=== PATIENT | female | born 1965 | race Caucasian/White ===

== ENCOUNTER 2016-10-12 15:20 | Observation (INO) | payer BC, OTHER ==
--- NOTE | 2016-10-12 15:22 | ED ---
General Adult HPI - General Stated complaint: rt ankle pain Time Seen by Provider: 10/12/16 15:21 Source: RN notes reviewed, old records reviewed - History of Present Illness Initial comments: This is a 51-year-old female in the ER for evaluation. Patient presents today for evaluation of ankle pain and right ankle pain, severe right ankle pain with inability to bear weight on right ankle. Patient had a slip and fall with an inversion injury of right ankle. Denies any other somatic injury. Did take Tylenol, and refusing any other pain medication. - Related Data Home Medications Medication Instructions Recorded Confirmed FLUoxetine HCL [PROzac] 40 mg PO DAILY 11/18/13 10/12/16 Lisinopril [Zestril] 20 mg PO DAILY 11/18/13 10/12/16 Atorvastatin [Lipitor] 20 mg PO HS 10/12/16 10/12/16 Previous Rx's Medication Instructions Recorded Aspirin EC [Ecotrin] 325 mg PO DAILY #30 tablet. 11/21/13 Metoprolol Tartrate [Lopressor] 50 mg PO BID #60 tab 11/21/13 amLODIPine [Norvasc] 5 mg PO DAILY #30 tab 11/21/13 Allergies Allergy/AdvReac Type Severity Reaction Status Date / Time hydromorphone [From Dilaudid] AdvReac Nausea & Verified 10/12/16 15:44 Vomiting morphine AdvReac Nausea & Verified 10/12/16 15:44 Vomiting Review of Systems ROS Statement: Those systems with pertinent positive or pertinent negative responses have been documented in the HPI. ROS Other: All systems not noted in ROS Statement are negative. Past Medical History Past Medical History: Chest Pain / Angina, Hyperlipidemia, Hypertension, Myocardial Infarction ([place]) Last Myocardial Infarction Date:: 2013 History of Any Multi-Drug Resistant Organisms: None Reported Past Surgical History: Back Surgery, Hysterectomy, Orthopedic Surgery Additional Past Surgical History / Comment(s): lt hip METAL SCREWS, DISCECTOMY OF c5c6 Past Anesthesia/Blood Transfusion Reactions: Postoperative Nausea & Vomiting ( PONV) Smoking Status: Never smoker - Past Family History Mother Family Medical History: Coronary Artery Disease (CAD) Father Family Medical History: Coronary Artery Disease (CAD) General Exam General appearance: alert, in no apparent distress Head exam: Present: atraumatic, normocephalic, normal inspection Eye exam: Present: normal appearance, PERRL, EOMI. Absent: scleral icterus, conjunctival injection, periorbital swelling ENT exam: Present: normal exam, mucous membranes moist Neck exam: Present: normal inspection. Absent: tenderness, meningismus, lymphadenopathy Respiratory exam: Present: normal lung sounds bilaterally. Absent: respiratory distress, wheezes, rales, rhonchi, stridor Cardiovascular Exam: Present: regular rate, normal rhythm, normal heart sounds. Absent: systolic murmur, diastolic murmur, rubs, gallop, clicks GI/Abdominal exam: Present: soft, normal bowel sounds. Absent: distended, tenderness, guarding, rebound, rigid Extremities exam: Present: normal inspection, full ROM, normal capillary refill. Absent: tenderness, pedal edema, joint swelling, calf tenderness Back exam: Present: normal inspection Neurological exam: Present: alert, oriented X3, CN II-XII intact Psychiatric exam: Present: normal affect, normal mood Skin exam: Present: warm, dry, intact, normal color. Absent: rash Course Vital Signs 10/12/16 15:25 Temperature 97.5 F L Pulse Rate 67 Respiratory 16 Rate Blood Pressure 153/73 O2 Sat by Pulse 98 Oximetry - Reevaluation(s) Reevaluation #1: 10/12/16 17:08 Patient has pain control at this time, spoke with Dr. lissa Ware, will splint reduced in ER and follow-up in the office tomorrow Procedures - Orthopedic Fracture Reduction Fracture #1 Consent Obtained: verbal consent Time Out Performed: Yes Side: right Fracture Reduction Location: tibia, fibula Analgesia: procedural sedation Technique: direct manipulation, traction/counter-traction Post Reduction X-rays Demonstrate: anatomical reduction Post-Reduction Neuro Exam: intact Post-Reduction Vascular Exam: intact Splint Applied: Yes Patient Tolerated Procedure: well - Orthopedic Joint Reduction Joint #1 Consent Obtained: verbal consent Time Out Performed: Yes Side: right Joint Reduction Location: ankle Analgesia: procedural sedation Shoulder Technique Used (if applicable): traction/counter-traction Technique Used: traction/counter-traction Post-Reduction Neuro Exam: intact Post-Reduction Vascular Exam: intact Post Reduction X-Ray Obtained: Yes Post Reduction X-Ray Results: reduced Splint Applied: Yes Patient Tolerated Procedure: well Medical Decision Making - Medical Decision Making 51 female here status post fall, patient fall after stepping in a hole, patient did sustain trimalleolar fracture of right leg, patient is having splinting of right leg. Patient will be discharged home - Radiology Data Radiology results: report reviewed (X-ray right ankle shows positive trimalar fracture), image reviewed Disposition Clinical Impression: Trimalleolar fracture of right ankle, Fall Disposition: HOME SELF-CARE Condition: Good Instructions: Ankle Fracture (ED) Referrals: Venkatesh Ware MD [Medical Doctor] - 1-2 days
--- NOTE | 2016-10-12 15:50 | XR ---
Right ankle HISTORY: Trauma and pain 3 views of the right ankle No comparisons Fracture dislocation is present at the ankle, there is lateral dislocation at the tibiotalar joint, f racture of the distal metaphyseal fibula with lateral displacement and angulation as well as fracture involving the medial malleolus. Findings thought to represent trimalleolar comminuted fractures. The re is associated soft tissue swelling present. IMPRESSION: Trimalleolar fracture dislocation is suspected with comminuted fragments.
[2016-10-12] MEDS ORDERED: MORPHINE SULFATE 4 MG/ML SYRINGE IVP STA (17:06)
[2016-10-12] MEDS ORDERED: LORazepam 2 MG/ML SYRINGE IV STA (17:06)
[2016-10-12] MEDS: ONDANSETRON 4 MG/2 ML VIAL IVP STA ×2 (17:18→17:58)
[2016-10-12] MEDS ORDERED: KETOROLAC 30 MG/ML 1 ML VIAL IVP STA (17:53)
[2016-10-12] MEDS ORDERED: HYDROmorphone 1 MG/ML 1 ML SYRINGE IVP STA (17:53)
--- NOTE | 2016-10-12 18:16 | XR ---
EXAMINATION TYPE: XR ankle limited RT DATE OF EXAM: 10/12/2016 COMPARISON: Today HISTORY: Post reduction TECHNIQUE: 2 views FINDINGS: 2 views were obtained through the cast. There is evidence of a trimalleolar fracture of the right ankle. There is 2 cm lateral displacement of the talus. There is a approximate 2 cm lateral di splacement of the medial malleolus. IMPRESSION: Trimalleolar fracture of the ankle with a partial lateral dislocation. There is not a sig nificant improvement compared to the initial exam.
[2016-10-12] MEDS ORDERED: SODIUM CHLORIDE 0.9% 1,000 ML IV ONE (19:10)
[2016-10-12] MEDS ORDERED: SODIUM CHLORIDE 0.9% 1,000 ML IV STA (19:10)
[2016-10-12] MEDS ORDERED: SODIUM CHLORIDE 0.9% 500 ML IV STA (19:10)
--- NOTE | 2016-10-12 19:15 | ED ---
Medical Decision Making - Lab Data Result diagrams: 10/12/16 19:20 10/12/16 19:20 - EKG Data -: EKG Interpreted by Me 10/12/16 19:52 EKG shows normal sinus rhythm rate of 64, AK 150, QRS 102, QTC 484 10/12/16 19:53 Disposition Clinical Impression: Trimalleolar fracture of right ankle, Fall Disposition: ADMITTED IP TO THIS [facility] Condition: Good
[2016-10-12 19:27] LABS: Basophils % (A) 0 %; CH 29.9; Eosinophils # (A) 0.1 k/uL (0-0.7); Eosinophils % (A) 1 %; HCT 38.9 % (34.0-46.0); HDW 2.45; HGB 12.6 gm/dL (11.4-16.0); Luc # (Auto) 0.14; Luc % (Auto) 2; Lymphocytes # (A) 1.6 k/uL (1.0-4.8); Lymphocytes % (A) 18 %; MCH 29.5 pg (25.0-35.0); MCHC 32.4 g/dL (31.0-37.0); MCV 91.1 fL (80.0-100.0); Monocytes # (A) 0.4 k/uL (0-1.0); Monocytes % (A) 5 %; Neutrophils # (A) 6.8 k/uL (1.3-7.7); Neutrophils % (A) 74 %; RBC 4.27 m/uL (3.80-5.40); WBC 9.1 k/uL (3.8-10.6); WBC (Perox) 9.35
[2016-10-12] MEDS ORDERED: MIDAZOLAM (PF) 1 MG/ML 5 ML VIAL IV STA (19:33)
[2016-10-12 19:39] LABS: ALT 27 U/L (9-52); AST 25 U/L (14-36); Alkaline Phosphatase 61 U/L (38-126); Anion Gap 11 mmol/L; Blood Urea Nitrogen 17 mg/dL (7-17); Calcium 8.6 mg/dL (8.4-10.2); Carbon Dioxide 25 mmol/L (22-30); Chloride 105 mmol/L (98-107); Glucose 99 mg/dL (74-99); Magnesium 1.9 mg/dL (1.6-2.3); Non-African American GFR(MDRD) >60 (>60 ml/min/1.73 sqM); Phosphorous 3.8 mg/dL (2.5-4.5); Potassium 3.9 mmol/L (3.5-5.1); Sodium 141 mmol/L (137-145); Total Bilirubin 0.6 mg/dL (0.2-1.3); Total Protein 6.4 g/dL (6.3-8.2)
--- NOTE | 2016-10-12 19:53 | XR ---
EXAMINATION TYPE: XR ankle limited RT DATE OF EXAM: 10/12/2016 COMPARISON: Today HISTORY: Post reduction TECHNIQUE: 3 views FINDINGS: There is fairly good anatomic reduction of the trimalleolar fracture of the ankle. There is 5 mm lateral displacement of the medial and lateral malleolus. IMPRESSION: Satisfactory reduction. I see no compacting process. There is still 5 mm lateral displace ment of the talus.
[2016-10-12 19:56] LABS: INR 1.1 (<1.1); Partial Thromboplastin Time 20.8 sec (22.0-30.0); Prothrombin Time 10.6 sec (9.0-12.0)
[2016-10-12 20:17] LABS: Creatine Kinase MB 0.9 ng/mL (0.0-2.4); Troponin I 0.027 ng/mL (0.000-0.034)
[2016-10-12] MEDS: METOPROLOL TARTRATE 50 MG TAB PO SCH (22:18)
[2016-10-12] MEDS: ATORVASTATIN 20 MG TAB PO SCH (22:19)
[2016-10-13] MEDS: MORPHINE SULFATE 4 MG/ML SYRINGE IV PRN ×4 (00:41→18:23)
--- NOTE | 2016-10-13 08:45 | ED ---
DATE OF SERVICE: I was called by the Emergency Room Department physician ( ) in regards to ( ) Ms. Nixon ( ) trimalleolar fracture dislocation. The initial attempt in the Emergency Room Department without significant success and ( ) significant lateral displacement. I arrived in the Emergency Room Department and evaluated the patient and discussed the findings with the patient, her daughter and and they are aware of the need for repositioning this ankle and we will utilize conscious sedation as well as digital ( ) x-ray ( ) position following ( ). The risks and complications were discussed with the family and further reduction was performed. Excellent alignment both AP and lateral were noted and she was placed in a well-padded ( ) posterior ( ) splint and prepared for further admission to [facility]. She will be evaluated by internal medicine prior to surgery and anticipate ( ) tomorrow afternoon following ( ). They are aware of the risks and complications of the ( ) refracturing and displacement terminal gauger degenerative changes as well as blood clots and other ( ) complications ( ). She will be admitted at this time and proceed ( ) as she is scheduled ( ) surgical scheduling at this time for tomorrow afternoon. There was excellent ( ) of the vasculature to ( ) and ( ) reduction is performed.
--- NOTE | 2016-10-13 08:56 | P.HPOR ---
History of Present Illness H&P Date: 10/13/16 Chief Complaint: Right ankle injury This is a 51-year-old female who fell into a mole hole yesterday sustaining injury to her right ankle. On exam and x-ray in the emergency department she is found to have a trimalleolar fracture dislocation of the right ankle. We're consulted for orthopedic evaluation. Past Medical History Past Medical History: Chest Pain / Angina, Hyperlipidemia, Hypertension, Myocardial Infarction ([place]) Last Myocardial Infarction Date:: 2013 History of Any Multi-Drug Resistant Organisms: None Reported Past Surgical History: Back Surgery, Hysterectomy, Orthopedic Surgery Additional Past Surgical History / Comment(s): lt hip METAL SCREWS, DISCECTOMY OF c5c6 Past Anesthesia/Blood Transfusion Reactions: Postoperative Nausea & Vomiting ( PONV) Past Psychological History: Anxiety Additional Psychological History / Comment(s): OCD PER PT Smoking Status: Never smoker - Past Family History Mother Family Medical History: Coronary Artery Disease (CAD) Father Family Medical History: Coronary Artery Disease (CAD) Medications and Allergies Home Medications Medication Instructions Recorded Confirmed Type FLUoxetine HCL [PROzac] 40 mg PO DAILY 11/18/13 10/12/16 History Lisinopril [Zestril] 20 mg PO DAILY 11/18/13 10/12/16 History Atorvastatin [Lipitor] 20 mg PO HS 10/12/16 10/12/16 History Allergies Allergy/AdvReac Type Severity Reaction Status Date / Time hydromorphone [From Dilaudid] AdvReac Nausea & Verified 10/12/16 15:44 Vomiting morphine AdvReac Nausea & Verified 10/12/16 15:44 Vomiting Physical Examination This is a 51-year-old female in no acute distress. She is alert and oriented 3. Exam of the right lower extremity reveals a short leg splint in place. She has full toe motion without difficulty or pain. There is no pain to the knee or hip with motion. Neurovascular status to the lower extremities intact. Results X-rays reveal a trimalleolar fracture dislocation of the right ankle. There are postreduction x-rays which show satisfactory reduction by Dr. Jain. - Labs Labs: Abnormal Lab Results - Last 24 Hours (Table) 10/12/16 Range/Units 19:20 APTT 20.8 L (22.0-30.0) sec H & H 06/21/17 Range/Units 19:20 Hgb 12.6 (11.4-16.0) gm/dL Hct 38.9 (34.0-46.0) % Coagulation 10/12/16 Range/Units 19:20 INR 1.1 (<1.1) Result Diagrams: 10/12/16 19:20 10/12/16 19:20 Assessment and Plan (1) Trimalleolar fracture of right ankle Status: Acute Plan: The clinical and x-ray findings are discussed the patient. She did have closed reduction of the ankle and the emergency department last evening. We are planning open reduction internal fixation of the right ankle today. The procedures been discussed in detail including the possible risks and outcomes of surgery. She'll most likely remain inpatient until tomorrow.
[2016-10-13] MEDS: FLUoxetine HCL 20 MG CAP PO SCH (09:00)
[2016-10-13] MEDS: amLODIPine 5 MG TAB PO SCH (09:00)
[2016-10-13] MEDS: LISINOPRIL 20 MG TAB PO SCH (09:00)
[2016-10-13] MEDS: ENOXAPARIN 40 MG/0.4 ML SYRINGE SQ SCH (09:00)
[2016-10-13] MEDS: METOPROLOL TARTRATE 50 MG TAB PO SCH ×2 (09:00→20:44)
[2016-10-13] MEDS: ONDANSETRON 4 MG/2 ML VIAL IVP PRN ×2 (12:38→18:24)
[2016-10-13] MEDS ORDERED: IV FLUID CONTINUATION 1,000 ML IV ONE (13:02)
[2016-10-13] MEDS ORDERED: fentaNYL (PF) 50 MCG/ML 2 ML AMP ONE (13:10)
[2016-10-13] MEDS ORDERED: PROPOFOL 10 MG/ML 20 ML VIAL IV ONE (13:10)
[2016-10-13] MEDS ORDERED: ePHEDrine 50 MG/ML 1 ML AMP ONE (13:10)
[2016-10-13] MEDS ORDERED: diphenhydrAMINE 50 MG/ML 1 ML VIAL ONE (13:10)
[2016-10-13] MEDS ORDERED: MIDAZOLAM 2 MG/2 ML VIAL ONE (13:10)
[2016-10-13] MEDS ORDERED: SODIUM CHLORIDE 0.9% 100 ML with ceFAZolin 2,000 MG IV ONE ×2 (13:22)
[2016-10-13] MEDS ORDERED: SENNOSIDES-DOCUSATE SODIUM 1 EACH TAB PO PRN (13:45)
[2016-10-13] MEDS ORDERED: diphenhydrAMINE 25 MG CAP PO PRN (13:45)
[2016-10-13] MEDS ORDERED: TEMAZEPAM 15 MG CAP PO PRN (13:45)
[2016-10-13] MEDS ORDERED: PROCHLORPERAZINE SUPPOSITORY 25 MG SUPP RECTAL PRN (13:45)
[2016-10-13] MEDS ORDERED: LACTATED RINGERS 1,000 ML IV ONE (13:46)
[2016-10-13] MEDS ORDERED: HYDROcodone/APAP 7.5-325MG 1 EACH TAB PO PRN (13:49)
--- NOTE | 2016-10-13 14:30 | XR ---
Fluoroscopy INDICATION: Pain FINDINGS: Fluoroscopy time: 6 seconds. Images obtained: 2. IMPRESSIONS: 1. Documentation of fluoroscopy.
--- NOTE | 2016-10-13 14:50 | XR ---
EXAMINATION TYPE: XR ankle limited RT DATE OF EXAM ORDERED: 10/13/2016 HISTORY: post op hardware. COMPARISON: Previous study dated 10/12/2016. FINDINGS: There has been side plate and screw fixation of the distal right fibular fracture. There a re 2 medullary screws transfixing a medial malleolus fracture on the right. There are metallic skin s utures present both medially and laterally. There is and alignment appear anatomic. IMPRESSION: STATUS POST INTERNAL FIXATION OF THE BIMALLEOLAR FRACTURE.
[2016-10-13 15:15] VITALS: RESP 16
[2016-10-13] MEDS: ceFAZolin 2 GM in SODIUM CHLORIDE 0.9% 100 ML IVPB SCH (17:08)
[2016-10-13] MEDS: hydrOXYzine PAMOATE 25 MG CAP PO PRN (20:40)
[2016-10-13] MEDS: ATORVASTATIN 20 MG TAB PO SCH (20:44)
[2016-10-13] MEDS: LACTATED RINGERS 1,000 ML IV SCH ×2 (20:48→22:42)
--- NOTE | 2016-10-13 22:05 | CONS ---
DATE OF CONSULTATION: 10/13/2016 REASON FOR CONSULTATION: Advice regarding hypertension, hyperlipidemia, and other medical issues. Requested by orthopedic surgery. HISTORY: This is a 51-year-old woman with a past medical history of multiple medical problems including hypertension, hyperlipidemia, history chest pain and angina, myocardial infarction, history of back surgery, history of DJD and anxiety, being followed by Dr. Menon in the outpatient setting. She was admitted with a right ankle fracture. The patient has a trimalleolar fracture of the right ankle. There is no history of any fever or rigors. No history of headache or loss of consciousness. No seizures at this time. The patient has occasional cough. PAST MEDICAL HISTORY: History of angina, hypertension, hyperlipidemia, myocardial infarction, history of back surgery, history of anxiety. Medications prior to admission include, home medications are: 1. Norvasc 5 mg p.o. daily. 2. Lopressor 50 mg daily. 3. Zestril 20 mg daily. 4. Prilosec 40 mg daily. 5. Lipitor 20 mg daily. 6. Ecotrin 325 mg daily. ALLERGIES: HYDROMORPHONE, MORPHINE. FAMILY HISTORY: History of coronary artery disease in the family. SOCIAL HISTORY: No history of smoking, no history of alcohol intake. REVIEW OF SYSTEMS: ENT: No decrease in hearing or vision. CARDIOVASCULAR SYSTEM: No angina or palpitations. RESPIRATORY: No cough. GI: As mentioned earlier. : No dysuria. NERVOUS SYSTEM: No numbness or weakness. IMMUNOLOGY: No asthma or hayfever. MUSCULOSKELETAL: As mentioned earlier. ENDOCRINE: No history of diabetes or hypothyroidism. CONSTITUTIONAL: As mentioned. DERMATOLOGY: Negative. PSYCHIATRY: As mentioned earlier. PHYSICAL EXAMINATION: Patient. GENERAL: Alert, oriented x3. VITAL SIGNS: Pulse 67, blood pressure 120/62, respirations 16, pulse ox 98% on room air, the temperature is 98.1. HEENT: Conjunctivae normal. Oral mucosa moist. NECK: No jugular venous distention. No carotid bruit. No lymph node enlargement. CARDIOVASCULAR: S1 and S2 muffled. RESPIRATORY: Breath sounds diminished at the bases. Few scattered rhonchi. No crackles. ABDOMEN: Soft, nontender. EXTREMITIES: Legs no edema. Status post right hemiarthroplasty. NERVOUS SYSTEM: higher functions as mentioned. Moves all limbs equally. No focal motor or sensory deficits. SKIN: No rashes. LABS: CBC within normal limits, 20.8, CMP within normal limits. ASSESSMENT: 1. Trimalleolar fracture of the right ankle. 2. Hypertension. 3. Hyperlipidemia. 4. History of myocardial infarction. 5. History of angina. 6. History of back surgery. 7. History of degenerative joint disease. 8. History of anxiety. 9. History of OCD. 10. History of THC remotely. 11. Obesity body mass index 33.3. 12. FULL CODE. RECOMMENDATIONS AND DISCUSSION: In this 51-year-old woman who presented with multiple complex medical issues, we will monitor the patient closely, continue the current recommendations and treatment. Recommend to resume home medications. The patient is stable, cleared for surgery. DVT prophylaxis and incentive spirometry. We will follow the patient closely. The patient will be asked to follow up with Dr. Menon closely after discharge. Thank you, Dr. Jain, for letting us participate in the care of this patient. ROMERO
[2016-10-14] MEDS: MORPHINE SULFATE 4 MG/ML SYRINGE IV PRN (00:42)
[2016-10-14] MEDS: ONDANSETRON 4 MG/2 ML VIAL IVP PRN (00:42)
[2016-10-14] MEDS: ceFAZolin 2 GM in SODIUM CHLORIDE 0.9% 100 ML IVPB SCH (00:42)
[2016-10-14] MEDS: HYDROcodone/APAP 7.5-325MG 1 EACH TAB PO PRN ×2 (06:26→12:36)
[2016-10-14] MEDS: hydrOXYzine PAMOATE 25 MG CAP PO PRN (06:26)
[2016-10-14 07:38] VITALS: BP 173/81; TEMP 98.1
[2016-10-14] MEDS: FLUoxetine HCL 20 MG CAP PO SCH (07:38)
[2016-10-14] MEDS: ENOXAPARIN 40 MG/0.4 ML SYRINGE SQ SCH (07:38)
[2016-10-14] MEDS: amLODIPine 5 MG TAB PO SCH (07:39)
[2016-10-14] MEDS: LISINOPRIL 20 MG TAB PO SCH (07:39)
[2016-10-14] MEDS: METOPROLOL TARTRATE 50 MG TAB PO SCH (07:39)
[2016-10-14 07:45] LABS: Basophils % (A) 0 %; CHCM 32.7; Eosinophils % (A) 0 %; HCT 35.9 % (34.0-46.0); HDW 2.44; HGB 11.7 gm/dL (11.4-16.0); Luc # (Auto) 0.14; Luc % (Auto) 1; Lymphocytes # (A) 1.3 k/uL (1.0-4.8); Lymphocytes % (A) 9 %; MCH 28.9 pg (25.0-35.0); MCHC 32.5 g/dL (31.0-37.0); MCV 89.1 fL (80.0-100.0); Mean Platelet Volume 9.1; Monocytes # (A) 0.8 k/uL (0-1.0); Monocytes % (A) 6 %; Neutrophils # (A) 12.4 k/uL (1.3-7.7); Neutrophils % (A) 84 %; RBC 4.03 m/uL (3.80-5.40); RDW 13.7 % (11.5-15.5); WBC 14.8 k/uL (3.8-10.6); WBC (Perox) 15.27
--- NOTE | 2016-10-14 08:37 | P.DS ---
Providers Date of admission: 10/12/16 19:11 Expected date of discharge: 10/14/16 Attending physician: Ravindra Jain Consults: 10/12/16 20:43 Consult Physician Routine Consulting Provider: Cynthia Ty Consult Reason/Comments: medical management Do you want consulting provider notified?: Yes, Notify in am Primary care physician: Clayton Menon - Discharge Diagnosis(es) (1) Trimalleolar fracture of right ankle Current Visit: Yes Status: Acute Hospital Course: This is a 51-year-old female who is admitted to [facility] on 06/14/2016 after falling and sustaining injury to her right ankle. On exam and x-ray in the emergency and she is found to have a trimalleolar fracture dislocation. She is admitted to our service for surgical intervention and care. Patient is taken to surgery on 10/13/2016 for open reduction internal fixation of the right ankle. The procedures performed without convocation or sequelae. Patient's doing well postoperatively. Vital signs are stable. She is ready for discharge on postoperative day #1. Patient is discharged to home on 10/14/2016 in good condition. Please see med rec for accurate list of home medications. Patient Condition at Discharge: Good Plan - Discharge Summary New Discharge Prescriptions: New HYDROcodone/APAP 7.5-325MG [Gowen 7.5-325] 1 - 2 each PO Q4-6H PRN #90 tab PRN Reason: Pain Aspirin 325 mg PO BID #60 tab Sennosides-Docusate Sodium [Senokot-S] 1 tab PO BID #60 tablet No Action Lisinopril [Zestril] 20 mg PO DAILY FLUoxetine HCL [PROzac] 40 mg PO DAILY Aspirin EC [Ecotrin] 325 mg PO DAILY #30 tablet. Metoprolol Tartrate [Lopressor] 50 mg PO BID #60 tab amLODIPine [Norvasc] 5 mg PO DAILY #30 tab Atorvastatin [Lipitor] 20 mg PO HS Discharge Medication List FLUoxetine HCL [PROzac] 40 mg PO DAILY 11/18/13 [History] Lisinopril [Zestril] 20 mg PO DAILY 11/18/13 [History] Aspirin EC [Ecotrin] 325 mg PO DAILY #30 tablet. 11/21/13 [Rx] Metoprolol Tartrate [Lopressor] 50 mg PO BID #60 tab 11/21/13 [Rx] amLODIPine [Norvasc] 5 mg PO DAILY #30 tab 11/21/13 [Rx] Atorvastatin [Lipitor] 20 mg PO HS 10/12/16 [History] Aspirin 325 mg PO BID #60 tab 10/14/16 [Rx] HYDROcodone/APAP 7.5-325MG [Gowen 7.5-325] 1 - 2 each PO Q4-6H PRN #90 tab 10/14 [Rx] Sennosides-Docusate Sodium [Senokot-S] 1 tab PO BID #60 tablet 10/14/16 [Rx] Follow up Appointment(s)/Referral(s): Venkatesh Ware MD [Medical Doctor] - 1-2 days Ravindra Jain DO [Doctor of Osteopathic Medicine] - 10 Days Ambulatory/Diagnostic Orders: Walker [DME.AMB1] Location: Determined By Patient Patient Instructions/Handouts: Ankle Fracture (ED) Activity/Diet/Wound Care/Special Instructions: Nonweightbearing right lower extremity with walker. Keep splint intact. Discharge Disposition: HOME SELF-CARE
[2016-10-14 08:58] VITALS: PULSE 76
[2016-10-14 12:08] LABS: Appearance,Urine Clear (Clear); Bilirubin,Urine Negative (Negative); Glucose,Urine (UA) Negative (Negative); Ketones,Urine Negative (Negative); Leukocyte Esterase,Urine Negative (Negative); Nitrite,Urine Negative (Negative); PH, Urine 6.5 (5.0-8.0); Protein,Urine Negative (Negative); Specific Gravity,Urine 1.007 (1.001-1.035); UA Billing (MACRO vs. MICRO) CHEM; Urobilinogen,Urine <2.0 mg/dL (<2.0)
--- NOTE | 2016-10-14 16:41 | PN ---
DATE OF SERVICE: 10/14/2016 This 51-year-old woman who was admitted with trimalleolar fracture right ankle underwent ORIF of the right ankle. No chest pain, no palpitation. No fever. On exam, alert and oriented x3. Pulse is 78, blood pressure 170/81, respirations 16, temperature 98.4, pulse ox 90% on room air. HEENT: Conjunctivae normal. NECK: No jugular venous distention. CARDIOVASCULAR: S1 and S2, muffled. RESPIRATORY: Breath sounds diminished at the bases. No rhonchi, no crackles. ABDOMEN: Soft. LEGS: Status post right ankle surgery. NERVOUS SYSTEM: No focal deficits. LABS: WBC 14.8. UA unremarkable. ASSESSMENT: 1. Trimalleolar fracture of the right ankle status post open reduction and internal fixation. 2. Increased WBC, possibly reactive. 3. Hypertension, essential. 4. Hyperlipidemia. 5. History of myocardial infarction. 6. History of angina. 7. History of back surgery. 8. History of degenerative joint disease. 9. History of anxiety. 10. History of obsessive compulsive disorder. 11. History of Tetrahydrocannabinol remotely. 12. Obesity with a body mass index of 33.3. 13. FULL CODE. RECOMMENDATIONS AND DISCUSSION: I recommend to continue the current medications, continue monitoring and symptomatic treatment. Incentive spirometry. Follow closely with primary physician on a p.r.n. basis. The rest of the recommendations per Orthopedic Surgery. She orders for details.
--- NOTE | 2016-10-14 18:49 | OP ---
DATE OF SERVICE: 10/13/2016 SURGEON: MIRA MORELAND DO TEMPORARY STAFF ACCOUNTANT: PREOPERATIVE DIAGNOSIS: Trimalleolar fracture dislocation, right ankle. POSTOPERATIVE DIAGNOSIS: Trimalleolar fracture dislocation, right ankle. OPERATION: Open reduction internal fixation of displaced trimalleolar dislocation, right ankle. ANESTHESIA: ESTIMATED BLOOD LOSS: SPECIMENS REMOVED: COMPLICATIONS: OPERATIVE FINDINGS: DESCRIPTION OF PROCEDURE: Patient was taken to the operative suite and placed in supine position. Spinal anesthesia was performed by the department of anesthesiology. Betadine prep was carried out over the right ankle. Sterile drapes were applied in the usual manner. Pneumatic tourniquet was inflated to 350 mmHg. A lateral incision was developed over the distal fibula and the tibial fracture. Sharp dissection through the subcutaneous tissue was performed. The ( ) nerve ( ) retracted and the fracture was identified. ( ) evidence of ( ) tibial fracture and the ( ) held in position with a lobster clamp. A 5-hole ( ) plate was shaped ( ) in securing the fracture laterally. Area was irrigated. X-rays were reviewed. ( ) A longitudinal incision was then developed over the medial malleolar fracture. ( ) tissue ( ) removed from the ( ) of the fracture. The fracture was held in position with ( ) clamp. Two ( ) vices were used in securing the ( ) fragment and ( ). Area was irrigated. The ( ) of the medial ( ) was reviewed ( ) Vicryl suture. Skin was approximated with 8 skin clips. Lateral incision was then ( ) suture ( ) area was closed from deep to superficial. ( ) were sutured utilizing ( ). The staple was utilized in approximating the skin. X-rays were obtained from the junction with ( ) alignment and position ( ). ( ) fracture ( ). Betadine, Adaptic and sterile pressure ( ) dressing was applied. Patient was transferred to recovery room in satisfactory postoperative condition. ( ) GROSS PATHOLOGY: There was a displaced fracture dislocation of the right ankle at the medial malleolus with comminution of the lateral fibula fracture. A small ( ) posterior malleolus. ( ) followup.
== END 2016-10-14 14:59 | disposition home or self-care (01) ==
LOC: EC 15:20 → INTOOBSV 19:11 → 3SUR 19:11
PROVIDERS: ADMIT Orthopaedic Surgery; ATTEND Orthopaedic Surgery
DX: S82.851A Displaced trimalleolar fracture of right lower leg, initial encounter for closed fracture (principal); E78.5 Hyperlipidemia, unspecified; I10 Essential (primary) hypertension; I20.9 Angina pectoris, unspecified; I25.2 Old myocardial infarction; Z90.710 Acquired absence of both cervix and uterus; F41.9 Anxiety disorder, unspecified; F42.9 Obsessive-compulsive disorder, unspecified; Z82.49 Family history of ischemic heart disease and other diseases of the circulatory system; Z79.899 Other long term (current) drug therapy; Z88.5 Allergy status to narcotic agent; W17.2XXA Fall into hole, initial encounter; E66.9 Obesity, unspecified; Z68.33 Body mass index [BMI] 33.0-33.9, adult; M19.90 Unspecified osteoarthritis, unspecified site
CPT/HCPCS: 27823; 96361; 96365; 96366 ×2; 96367; 36415; 93005; 97161; 80053; 82550; 82553; 83735; 84100; 84484; 85025 ×2; 85610; 85730; 81003; 73600 ×2; 73610; G0378 ×3; C1713; J2250 ×2; J2060; J2270 ×3; J1200; J0690 ×3; J2405 ×3; J1650; J3010; J1885; J2704

== ENCOUNTER 2017-10-04 09:25 | Day surgery (SDC) | payer OTHER ==
[2017-10-02 10:31] VITALS: BMI 33.3
[~2017-10-04 09:25] MED LIST: LACTATED RINGERS 1,000 ML IV SCH; LIDOCAINE 1% 20 ML VIAL (10MG/ML) FOR IV START INTRADERMA PRN; MIDAZOLAM 2 MG/2 ML VIAL IV PRN
[2017-10-04 10:38] VITALS: TEMP 98.4
[2017-10-04] MEDS ORDERED: PROPOFOL 10 MG/ML 20 ML VIAL IV ONE (11:13)
--- NOTE | 2017-10-04 11:28 | P.PCN ---
Date of Procedure: 10/04/17 Procedure(s) Performed: BRIEF HISTORY: Patient is a 52-year-old pleasant white female, scheduled for an elective colonoscopy as a part of screening for colorectal neoplasia. PROCEDURE PERFORMED: Colonoscopy. PREOPERATIVE DIAGNOSIS: Screening for colon cancer. IV sedation per Anesthesia. PROCEDURE: After informed consent was obtained, the patient, was brought into the endoscopy unit. IV sedation was administered by Anesthesia under continuous monitoring. Digital rectal examination was normal. Initially the Olympus CF- 160 flexible video colonoscope was then inserted in the rectum, gradually advanced into the cecum without any difficulty. Careful examination was performed as the scope was gradually being withdrawn. Ileocecal valve and the appendiceal orifice were visualized and appeared normal. Prep was excellent. Mucosa of the cecum, ascending colon, transverse colon, descending colon, sigmoid colon, and rectum appeared normal. Retroflexion was performed in the rectum and no lesions were seen. The patient tolerated the procedure well. IMPRESSION: Normal-appearing colon from rectum to cecum with no evidence of colorectal neoplasia . RECOMMENDATIONS: Findings of this examination were discussed with the patient well as her family. She was advised to have a repeat screening colonoscopy in 10 years.
[2017-10-04 11:41] VITALS: RESP 18
[2017-10-04 11:45] VITALS: BP 134/71; PULSE 54
== END 2017-10-04 12:01 | disposition home or self-care (01) ==
LOC: ORWHC2ENDO 09:25
PROVIDERS: ATTEND Internal Medicine Gastroenterology
DX: Z12.11 Encounter for screening for malignant neoplasm of colon (principal); I10 Essential (primary) hypertension; F32.9 Major depressive disorder, single episode, unspecified; F41.9 Anxiety disorder, unspecified; E78.5 Hyperlipidemia, unspecified; Z79.899 Other long term (current) drug therapy; Z88.5 Allergy status to narcotic agent
CPT/HCPCS: J2704; G0121; 45378

== ENCOUNTER → 2019-01-03 | Outpatient (CLI) | payer OTHER ==
--- NOTE | 2019-01-03 16:41 | US ---
EXAMINATION TYPE: US venous doppler duplex LE LT DATE OF EXAM: 01/03/2019 4:27 PM COMPARISON: NONE CLINICAL HISTORY: LEFT LEG; left thigh pain M79.652. History of left thigh pain x 4 days; HX of Left femur fracture with fixation as a young person; left knee joint fracture per patient 34 years ago. SIDE PERFORMED: Left TECHNIQUE: The lower extremity deep venous system is examined utilizing real time linear array sonog zhao with graded compression, doppler sonography and color-flow sonography. VESSELS IMAGED: Common Femoral Vein Deep Femoral Vein Greater Saphenous Vein * Femoral Vein Popliteal Vein Small Saphenous Vein * Proximal Calf Veins (* superficial vessels) Left Leg: Negative for DVT IMPRESSION: No evidence of deep venous thrombosis in the left leg.
--- NOTE | 2019-01-03 17:17 | XR ---
EXAMINATION TYPE: XR lumbosacral spine min 4V DATE OF EXAM: 01/03/2019 COMPARISON: NONE HISTORY: Left leg pain TECHNIQUE: 5 views FINDINGS: Vertebra have fairly normal spacing and alignment. Posterior elements are intact. Sacroilia c joints appear normal. There is no evidence of compression fracture. IMPRESSION: Lumbar spine appears normal for age. No fracture.
--- NOTE | 2019-01-03 17:18 | XR ---
EXAMINATION TYPE: XR knee complete LT DATE OF EXAM: 01/03/2019 COMPARISON: NONE HISTORY: Knee pain TECHNIQUE: 3 views FINDINGS: I see no fracture nor dislocation. Joint spaces are normal. There is no sign of joint effus ion. IMPRESSION: Negative left knee exam.
== END | disposition home or self-care (01) ==
LOC: RADUSWWP 16:02
PROVIDERS: ATTEND Family Medicine
DX: M79.652 Pain in left thigh (principal); M25.562 Pain in left knee
CPT/HCPCS: 72110

== ENCOUNTER 2021-06-18 15:10 | Emergency (ER) | payer BC, OTHER ==
[2021-06-18 16:02] VITALS: BP 178/75; RESP 16; TEMP 97.1
[2021-06-18] MEDS ORDERED: ONDANSETRON 4 MG/2 ML VIAL IVP STA (16:05)
[2021-06-18] MEDS ORDERED: SODIUM CHLORIDE 0.9% 1,000 ML IV STA (16:05)
[2021-06-18] MEDS ORDERED: ASPIRIN 81 MG PO STA (16:05)
[2021-06-18] MEDS ORDERED: LORazepam 2 MG/ML INJ IV STA (16:06)
[2021-06-18 16:40] LABS: HCT 43.5 % (34.0-46.0); HGB 14.6 gm/dL (11.4-16.0); MCH 30.7 pg (25.0-35.0); MCHC 33.6 g/dL (31.0-37.0); MCV 91.4 fL (80.0-100.0); Mean Platelet Volume 10.7; Platelet Count 192 k/uL (150-450); RBC 4.76 m/uL (3.80-5.40); RDW 13.2 % (11.5-15.5); WBC 14.8 k/uL (3.8-10.6)
--- NOTE | 2021-06-18 16:40 | ED ---
General Adult HPI - General Chief complaint: Nausea/Vomiting/Diarrhea Stated complaint: Anxiety Time Seen by Provider: 06/18/21 15:21 Source: patient, EMS Mode of arrival: EMS Limitations: no limitations - History of Present Illness Initial comments: Patient is a 56-year-old male with past medical history remarkable for hypertension, anxiety percents emergency department with sounds like an anxiety episode while at work. She has been under more stress lately. She states she was feeling extremely anxious at work. Both hands went numb in both feet went numb. She began having nausea and vomiting and some mild lightheadedness. Symptoms began to improve and she attempted to go back to work but became back. She presents emergency department for further evaluation of this time. She denies any chest pain, shortness breath, abdominal pain. Does endorse nausea with nonbilious emesis. Denies any diarrhea, fevers, chills, sick contacts. Denies any headaches, denies any weakness. States the numbness in her hands and feet of resolved. His no other acute complaints at this time. No history of panic attacks. Is concerned regarding her heart. His no other acute complaints at this time. - Related Data Home Medications Medication Instructions Recorded Confirmed lisinopriL [Zestril] 20 mg PO DAILY 11/18/13 06/18/21 amLODIPine [Norvasc] 5 mg PO DAILY 10/02/17 06/18/21 Atorvastatin Calcium [Lipitor] 10 mg PO HS 06/18/21 06/18/21 FLUoxetine HCL [PROzac] 20 mg PO DAILY 06/18/21 06/18/21 Previous Rx's Medication Instructions Recorded Metoprolol Tartrate [Lopressor] 50 mg PO BID #60 tab 11/21/13 LORazepam [Ativan] 0.5 mg PO DAILY PRN 3 Days #3 tab 06/18/21 Allergies Allergy/AdvReac Type Severity Reaction Status Date / Time hydromorphone [From Dilaudid] AdvReac Nausea & Verified 06/18/21 17:34 Vomiting morphine AdvReac Nausea & Verified 06/18/21 17:34 Vomiting Review of Systems ROS Statement: Those systems with pertinent positive or pertinent negative responses have been documented in the HPI. Review of Systems: CONST: Denies fever EYES: Denies blurry vision ENT: Denies nasal congestion C/V: Denies Chest pain RESP: Denies shortness of breath GI: Denies abdominal pain : Denies dysuria SKIN: Denies rash. MSK: Denies joint pain. NEURO: Denies headache ROS Other: All systems not noted in ROS Statement are negative. Past Medical History Past Medical History: Chest Pain / Angina, Hyperlipidemia, Hypertension, Myocardial Infarction ([place]) Last Myocardial Infarction Date:: 2013 History of Any Multi-Drug Resistant Organisms: None Reported Past Surgical History: Back Surgery, Heart Catheterization, Hysterectomy, Orthopedic Surgery Additional Past Surgical History / Comment(s): RT ANKLE PLATE, lt hip METAL SCREWS, DISCECTOMY OF c5c6 Past Anesthesia/Blood Transfusion Reactions: Postoperative Nausea & Vomiting (PONV) Past Psychological History: Anxiety Smoking Status: Never smoker Past Alcohol Use History: Occasional Past Drug Use History: Marijuana - Past Family History Mother Family Medical History: Coronary Artery Disease (CAD) Father Family Medical History: Coronary Artery Disease (CAD) General Exam - General Exam Comments Initial Comments: General: Appears in no mild distress secondary to anxiety. HEAD: Normal with no signs of head trauma. EYES: PERRLA, EOMI, conjunctiva normal, no discharge. Pupils are 3 mm and equal bilaterally. ENT: Hearing grossly intact, normal oropharynx. RESPIRATORY: Clear breath sounds bilaterally. No wheezes, rales, or rhonchi. C/V: Regular rate and rhythm. S1 and S2 auscultated, no edema, peripheral pulses 2+ and intact throughout ABD: Abd is soft, nontender, nondistended EXT: Normal range of motion, no obvious deformity SKIN: No rashes or lesions observed on exposed skin. NEURO: Alert and oriented 4. Cranial nerves II through XII are intact. No focal sensory or strength deficits. Normal cerebellar function is intact as evident by normal finger-nose and heel andrew testing. NIH is 0. GCS is 15. Limitations: no limitations Course Vital Signs 06/18/21 06/18/21 15:41 17:50 Temperature 97.1 F L Pulse Rate 58 L 63 Respiratory 16 16 Rate Blood Pressure 178/75 O2 Sat by Pulse 99 96 Oximetry Medical Decision Making - Medical Decision Making Based on the patient's presentation and physical exam, I do believe she is likely experiencing a panic attack or anxiety episode. However, no cardiac etiology at this time. We will obtain cardiac laboratory studies as well as EKG and chest x-ray. She'll be sent medically treated with aspirin, Ativan, Zofran, fluid bolus. She was in agreement this plan. Patient's EKG shows no signs of acute ischemia and no acute changes from prior EKGs.Laboratory studies are remarkable for a mild leukocytosis of 14 which is likely reactive. The remainder of the labs are relatively unremarkable including a negative troponin. Chest x-ray revealed no acute cardiopulmonary process. On reevaluation, patient is feeling improved. She is no longer nauseous. She states anxiety is gone. His no other acute complaints at this time. I did discuss with the patient as well as family, patient's daughter is concerned for possible stroke or Shaw's palsy and request a CT brain. We will obtain this at the request. I have low suspicion for any intracranial abnormality at this time. Patient's CT brain revealed no acute injury, hemorrhage or midline shift or mass effect. His no other intracranial findings on CT. Reevaluation come patient remains within normal limits and stable. Vital signs remained within normal limits and stable. I did discuss with her the results of her laboratory studies and imaging overall. CT brain is unremarkable. I do believe it is safer to be discharged home at this time. Patient never had chest pain in the department. She likely experienced an anxiety episode versus panic attack. Patient was in agreement with this. She'll be given 3 tablets of Ativan for home and instructions follow-up with her PCP. She was in agreement this plan. I will provide the patient with a prescription for Ativan. I instructed the patient to follow up with their PCP in the next 3 days. I explained that the patient should return to the emergency department if they experience any worsening symptoms. Strict return precautions were discussed with the patient. The patient expressed understanding of these instructions. I answered all questions that the patient had. The patient was discharged home in good condition with their prescriptions and follow up information. Patient is tolerating oral intake and upon discharge. - Lab Data Result diagrams: 06/18/21 16:26 06/18/21 16:26 Lab Results 06/18/21 06/18/21 06/18/21 Range/Units 16:26 16: 16: WBC 14.8 H (3.8-10.6) k/uL RBC 4.76 (3.80-5.40) m/uL Hgb 14.6 (11.4-16.0) gm/dL Hct 43.5 (34.0-46.0) % MCV 91.4 (80.0-100.0) fL MCH 30.7 (25.0-35.0) pg MCHC 33.6 (31.0-37.0) g/dL RDW 13.2 (11.5-15.5) % Plt Count 192 (150-450) k/uL MPV 10.7 Neutrophils % (Manual) 90 % Lymphocytes % (Manual) 6 % Monocytes % (Manual) 4 % Neutrophils # (Manual) 13.32 H (1.3-7.7) k/uL Lymphocytes # (Manual) 0.89 L (1.0-4.8) k/uL Monocytes # (Manual) 0.59 (0-1.0) k/uL Nucleated RBCs 0 (0-0) /100 WBC Manual Slide Review Performed Large Platelets Present RBC Morphology Normal PT 10.5 (9.0-12.0) sec INR 1.0 (<1.2) APTT 16.2 L (22.0-30.0) sec Sodium 141 (137-145) mmol/L Potassium 3.4 L (3.5-5.1) mmol/L Chloride 109 H (98-107) mmol/L Carbon Dioxide 20 L (22-30) mmol/L Anion Gap 12 mmol/L BUN 18 H (7-17) mg/dL Creatinine 1.27 H (0.52-1.04) mg/dL Est GFR (CKD-EPI)AfAm 54 (>60 ml/min/1.73 sqM) Est GFR (CKD-EPI)NonAf 47 (>60 ml/min/1.73 sqM) Glucose 157 H (74-99) mg/dL Calcium 9.4 (8.4-10.2) mg/dL Magnesium 1.7 (1.6-2.3) mg/dL Total Bilirubin 1.0 (0.2-1.3) mg/dL AST 37 H (14-36) U/L ALT 24 (4-34) U/L Alkaline Phosphatase 47 (38-126) U/L Troponin I (0.000-0.034) ng/mL Total Protein 6.9 (6.3-8.2) g/dL Albumin 4.3 (3.5-5.0) g/dL 06/18/21 Range/Units 16:26 WBC (3.8-10.6) k/uL RBC (3.80-5.40) m/uL Hgb (11.4-16.0) gm/dL Hct (34.0-46.0) % MCV (80.0-100.0) fL MCH (25.0-35.0) pg MCHC (31.0-37.0) g/dL RDW (11.5-15.5) % Plt Count (150-450) k/uL MPV Neutrophils % (Manual) % Lymphocytes % (Manual) % Monocytes % (Manual) % Neutrophils # (Manual) (1.3-7.7) k/uL Lymphocytes # (Manual) (1.0-4.8) k/uL Monocytes # (Manual) (0-1.0) k/uL Nucleated RBCs (0-0) /100 WBC Manual Slide Review Large Platelets RBC Morphology PT (9.0-12.0) sec INR (<1.2) APTT (22.0-30.0) sec Sodium (137-145) mmol/L Potassium (3.5-5.1) mmol/L Chloride (98-107) mmol/L Carbon Dioxide (22-30) mmol/L Anion Gap mmol/L BUN (7-17) mg/dL Creatinine (0.52-1.04) mg/dL Est GFR (CKD-EPI)AfAm (>60 ml/min/1.73 sqM) Est GFR (CKD-EPI)NonAf (>60 ml/min/1.73 sqM) Glucose (74-99) mg/dL Calcium (8.4-10.2) mg/dL Magnesium (1.6-2.3) mg/dL Total Bilirubin (0.2-1.3) mg/dL AST (14-36) U/L ALT (4-34) U/L Alkaline Phosphatase (38-126) U/L Troponin I <0.012 (0.000-0.034) ng/mL Total Protein (6.3-8.2) g/dL Albumin (3.5-5.0) g/dL - EKG Data -: EKG Interpreted by Me EKG Comments: 12-lead Electrocardiogram Interpretation Note EKG was reviewed and interpreted by myself. 12-lead ECG performed at 1537 is interpreted by me as revealing normal sinus rhythm at a rate of 58 beats per minute. [place] is normal. OR interval is 156 seconds, QRS duration is 105 ms, QTc is 490 ms and slightly prolonged. Does show signs of left ventricular hypertrophy... There were no ST or T wave abnormalities to suggest myocardial ischemia or injury. R wave progression across the precordium was satisfactory. By my interpretation this EKG is non-diagnostic for acute ischemia. No change in EKG when compared to prior EKGs. Disposition Clinical Impression: Anxiety, Nausea and vomiting Disposition: HOME SELF-CARE Condition: Good Instructions (If sedation given, give patient instructions): Acute Nausea and Vomiting (ED), Anxiety (ED), Panic Attack (ED) Prescriptions: LORazepam [Ativan] 0.5 mg PO DAILY PRN 3 Days #3 tab PRN Reason: Anxiety Is patient prescribed a controlled substance at d/c from ED?: Yes When asked, does pt state using other controlled substances?: No If prescribed controlled substance>3 days was MAPS reviewed?: Prescribed <3 Days Referrals: Clayton Menon DO [Primary Care Provider] - 1-2 days
[2021-06-18 16:52] LABS: Albumin 4.3 g/dL (3.5-5.0); Calcium 9.4 mg/dL (8.4-10.2); Magnesium 1.7 mg/dL (1.6-2.3); Total Protein 6.9 g/dL (6.3-8.2)
[2021-06-18 16:53] LABS: Potassium 3.4 mmol/L (3.5-5.1)
[2021-06-18 17:18] LABS: Prothrombin Time 10.5 sec (9.0-12.0)
[2021-06-18 17:24] LABS: Partial Thromboplastin Time 16.2 sec (22.0-30.0)
[2021-06-18 17:47] LABS: Large Platelets Present; Lymphocytes # (M) 0.89 k/uL (1.0-4.8); Monocytes # (M) 0.59 k/uL (0-1.0); Neutrophils # (M) 13.32 k/uL (1.3-7.7); Neutrophils % (M) 90 %; Nucleated Red Blood Cells 0 /100 WBC (0-0); RBC Morphology Normal; Total Cells Counted 100
[2021-06-18 17:51] VITALS: PULSE 63
--- NOTE | 2021-06-18 18:02 | XR ---
EXAMINATION TYPE: XR chest 2V DATE OF EXAM: 06/18/2021 COMPARISON: 11/18/2013 HISTORY: 56 years Female. STUDY INDICATION GIVEN: Chest Pain . TECHNIQUE: Frontal and lateral chest radiographs. IMPRESSION: No focal airspace disease, pneumothorax or pleural effusion. The cardiomediastinal silhouette is normal in appearance. No acute osseous abnormalities seen.
--- NOTE | 2021-06-18 18:31 | CT ---
EXAMINATION TYPE: CT brain wo con DATE OF EXAM: 06/18/2021 COMPARISON: 06/23/2011 HISTORY: Neuro deficits TECHNIQUE: CT scan of the head without contrast CT DLP: 1090.4 mGycm Automated exposure control for dose reduction was used. FINDINGS: No acute intracranial hemorrhage, midline shift or mass effect. Woods-white matter differentiation is preserved. CSF spaces and ventricles are normal in configuration. No acute intraorbital osseous or soft tissue abnormalities seen. Mild mucosal thickening in the right ethmoidal air cells. Noted again is partial opacification of the left mastoid air cells, no significant change since prior Atherosclerotic calcifications are seen in the intracranial internal carotid arteries. IMPRESSION: NO ACUTE INTRACRANIAL HEMORRHAGE MIDLINE SHIFT OR MASS EFFECT. MILD MUCOSAL SINUS DISEASE.
== END 2021-06-18 19:18 | disposition home or self-care (01) ==
LOC: EC 15:10
DX: F41.9 Anxiety disorder, unspecified (principal); R11.2 Nausea with vomiting, unspecified; R42 Dizziness and giddiness; I10 Essential (primary) hypertension; I25.2 Old myocardial infarction; E78.5 Hyperlipidemia, unspecified; Z88.5 Allergy status to narcotic agent; Z79.899 Other long term (current) drug therapy
CPT/HCPCS: 36415; 93005; 80053; 83735; 84484; 85025; 85610; 85730; 71046; 70450; 99284; 96374; 96375; 96361; J2060; J2405

== ENCOUNTER → 2022-08-17 | Outpatient (CLI) | payer BC ==
--- NOTE | 2022-08-18 19:54 | MM ---
Reason for Exam: Screening (asymptomatic). Last mammogram was performed 4 year(s) and 6 month(s) ago. Patient History: Menarche at age 13. First Full-Term at age 18. Postmenopausal. Risk Values: Shruthi 5 year model risk: 1.1%. NCI Lifetime model risk: 6.2%. Prior Study Comparison: 02/18/1998 Bilateral Diagnostic Mammogram, [facility]. 09/19/2003 Bilateral Screening Mammogram, [facility]. 09/22/2004 Bilateral Screening Mammogram, [facility]. Tissue Density: There are scattered fibroglandular densities. Findings: Analyzed By CAD. Benign bilateral oil cyst calcifications. There is no suspicious group of microcalcifications or new suspicious mass in either breast. Overall Assessment: Benign, BI-RAD 2 Management: Screening Mammogram of both breasts in 1 year. 1. Patient should continue monthly self breast exams. 2. A clinical breast exam by your physician is recommended on an annual basis. 3. This exam should not preclude additional follow-up of suspicious palpable abnormalities. Electronically signed and approved by: Galdino Pierson M.D. Radiologist
== END | disposition home or self-care (01) ==
LOC: RADMAMWWP 14:13
PROVIDERS: ATTEND Family Medicine
DX: Z12.31 Encounter for screening mammogram for malignant neoplasm of breast (principal); Z78.0 Asymptomatic menopausal state
CPT/HCPCS: 77063; 77067

== ENCOUNTER → 2023-08-23 | Outpatient (CLI) | payer BC ==
--- NOTE | 2023-08-24 17:50 | MM ---
Reason for Exam: Screening (asymptomatic). Last mammogram was performed 1 year(s) and 1 month(s) ago. Patient History: Menarche at age 13. First Full-Term at age 18. Postmenopausal. Risk Values: Shruthi 5 year model risk: 1.2%. NCI Lifetime model risk: 6.0%. Prior Study Comparison: 01/24/2018 Bilateral Screening Mammogram, [facility]. 01/31/2018 Bilateral Diagnostic Mammogram, [facility]. 08/17/2022 Bilateral MG 3D screening mammo w/cad, [facility]. Tissue Density: There are scattered areas of fibroglandular density. Findings: Analyzed By CAD. The pattern is symmetrical. No significant interval change. Benign calcifications are present bilaterally. No suspicious groups of microcalcifications, spiculated or lobular masses, architectural distortion or other secondary signs of malignancy are mammographically apparent. Overall Assessment: Benign, BI-RAD 2 Management: Screening Mammogram of both breasts in 1 year. A negative mammogram report should not preclude additional follow up of suspicious palpable abnormalities. Patient should continue monthly self breast exam. A clinical breast exam by your physician is recommended on an annual basis and results should be correlated with mammographic findings. Note on Shruthi scores and lifetime risk: 1. A Shruthi score greater than 3% is considered moderate risk. If this is the case, consider specialist referral to assess eligibility for a risk reducing agent. 2. If overall lifetime risk for the development of breast cancer is 20% or higher, the patient may qualify for future screening with alternating mammogram and breast MRI. Electronically signed and approved by: Clayton Mckeon D.O. Radiologis
== END | disposition home or self-care (01) ==
LOC: RADMAMWWP 11:19
PROVIDERS: ATTEND Family Medicine
DX: Z12.31 Encounter for screening mammogram for malignant neoplasm of breast (principal); Z78.0 Asymptomatic menopausal state
CPT/HCPCS: 77063; 77067

== ENCOUNTER 2024-04-10 08:46 | Emergency (ER) | payer BC ==
--- NOTE | 2024-04-10 09:26 | XR ---
EXAMINATION TYPE: XR chest 2V DATE OF EXAM: 04/10/2024 9:21 AM COMPARISON: 06/18/2021 CLINICAL INDICATION: Female, 59 years old with history of Chest Pain, TECHNIQUE: Frontal and lateral views of the chest are obtained. FINDINGS: There is no focal air space opacity, pleural effusion, or pneumothorax seen. The cardiac silhouette size is within normal limits. The osseous structures are intact. IMPRESSION: No acute cardiopulmonary process. [facility], , 04/10/2024 9:24 AM
[2024-04-10 09:51] LABS: Basophils % (A) 0 %; Eosinophils # (A) 0.1 k/uL (0-0.7); Eosinophils % (A) 1 %; HCT 41.9 % (34.0-46.0); HGB 13.8 gm/dL (11.4-16.0); Lymphocytes # (A) 1.7 k/uL (1.0-4.8); Lymphocytes % (A) 19 %; MCH 29.5 pg (25.0-35.0); MCHC 32.9 g/dL (31.0-37.0); MCV 89.5 fL (80.0-100.0); Mean Platelet Volume 10.4; Monocytes # (A) 0.4 k/uL (0-1.0); Monocytes % (A) 5 %; Neutrophils # (A) 6.2 k/uL (1.3-7.7); Neutrophils % (A) 72 %; Platelet Count 195 k/uL (150-450); RBC 4.68 m/uL (3.80-5.40); RDW 13.5 % (11.5-15.5); WBC 8.6 k/uL (3.8-10.6)
[2024-04-10 09:59] LABS: ALT 18 U/L (4-34); AST 25 U/L (14-36); African American GFR (CKD) >90 (>60 ml/min/1.73 sqM); Albumin 4.3 g/dL (3.5-5.0); Alkaline Phosphatase 61 U/L (38-126); Anion Gap 3 mmol/L; Blood Urea Nitrogen 19 mg/dL (7-17); Calcium 9.6 mg/dL (8.4-10.2); Carbon Dioxide 32 mmol/L (22-30); Chloride 105 mmol/L (98-107); Glucose 102 mg/dL (74-99); Lipase 163 U/L (23-300); Magnesium 2.1 mg/dL (1.6-2.3); Non-African American GFR(CKD) 82 (>60 ml/min/1.73 sqM); Potassium 3.9 mmol/L (3.5-5.1); Sodium 140 mmol/L (137-145); Total Bilirubin 0.5 mg/dL (0.2-1.3); Total Protein 6.6 g/dL (6.3-8.2)
[2024-04-10 10:07] LABS: Partial Thromboplastin Time 24.5 sec (22.0-30.0); Prothrombin Time 10.7 sec (10.0-12.5)
--- NOTE | 2024-04-10 11:04 | ED ---
Chest Pain HPI - General Chief Complaint: Chest Pain Stated Complaint: chest discomfort, clammy Time Seen by Provider: 04/10/24 08:50 Source: patient Mode of arrival: ambulatory Limitations: no limitations - History of Present Illness Initial Comments: 59-year-old female presents emergency department with chest pain. States that it is pleuritic in nature. Also occurs with movement of the left arm and with palpation to the area. Patient states she was at work today when the pain came on. She has no history of cardiac disease. She denies take anything for the pain before coming in. Her coworkers suggested that she come get evaluated. She denies ripping or tearing sensation to her back. No fevers, chills or cough. No history of DVT or PE. No other alleviating, precipitating or modifying factors - Related Data Home Medications Medication Instructions Recorded Confirmed lisinopriL [Zestril] 20 mg PO DAILY 11/18/13 04/10/24 amLODIPine [Norvasc] 5 mg PO DAILY 10/02/17 04/10/24 Atorvastatin [Lipitor] 20 mg PO HS 04/10/24 04/10/24 FLUoxetine HCL [PROzac] 40 mg PO DAILY 04/10/24 04/10/24 Previous Rx's Medication Instructions Recorded Metoprolol Tartrate [Lopressor] 50 mg PO BID #60 tab 11/21/13 Allergies Allergy/AdvReac Type Severity Reaction Status Date / Time hydromorphone [From Dilaudid] AdvReac Nausea & Verified 04/10/24 10:00 Vomiting morphine AdvReac Nausea & Verified 04/10/24 10:00 Vomiting Review of Systems ROS Statement: Those systems with pertinent positive or pertinent negative responses have been documented in the HPI. ROS Other: All systems not noted in ROS Statement are negative. Past Medical History Past Medical History: Chest Pain / Angina, Hyperlipidemia, Hypertension, Myocardial Infarction ([place]) Last Myocardial Infarction Date:: 2013 History of Any Multi-Drug Resistant Organisms: None Reported Past Surgical History: Back Surgery, Heart Catheterization, Hysterectomy, Orthopedic Surgery Additional Past Surgical History / Comment(s): RT ANKLE PLATE, lt hip METAL SCREWS, DISCECTOMY OF [id number] Past Anesthesia/Blood Transfusion Reactions: Postoperative Nausea & Vomiting (PONV) Past Psychological History: Anxiety Smoking Status: Never smoker Past Alcohol Use History: Occasional Past Drug Use History: Marijuana - Past Family History Mother Family Medical History: Coronary Artery Disease (CAD) Father Family Medical History: Coronary Artery Disease (CAD) General Exam Limitations: no limitations General appearance: alert, in no apparent distress Head exam: Present: atraumatic, normocephalic, normal inspection Eye exam: Present: normal appearance, PERRL, EOMI. Absent: scleral icterus, conjunctival injection, periorbital swelling ENT exam: Present: normal exam, mucous membranes moist Neck exam: Present: normal inspection. Absent: tenderness, meningismus, lymphadenopathy Respiratory exam: Present: normal lung sounds bilaterally, chest wall tenderness. Absent: respiratory distress, wheezes, rales, rhonchi, stridor Cardiovascular Exam: Present: regular rate, normal rhythm, normal heart sounds. Absent: systolic murmur, diastolic murmur, rubs, gallop, clicks GI/Abdominal exam: Present: soft, normal bowel sounds. Absent: distended, tenderness, guarding, rebound, rigid Extremities exam: Present: normal inspection, full ROM, normal capillary refill. Absent: tenderness, pedal edema, joint swelling, calf tenderness Back exam: Present: normal inspection Neurological exam: Present: alert, oriented X3, CN II-XII intact Psychiatric exam: Present: normal affect, normal mood Skin exam: Present: warm, dry, intact, normal color. 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 sent in by a medical professional or institution (, PA, DRY CELL BATTERY ASSEMBLER, urgent care, hospital, or fci...) When possible be specific @ -No Did you speak to anyone other than the patient for history (EMS, parent, family, police, friend...)? What history was obtained from this source @ -No Did you review nursing and triage notes (agree or disagree)? Why? @ -I reviewed and agree with nursing and triage notes Were old charts reviewed (outside hosp., previous admission, EMS record, old EKG, old radiological studies, urgent care reports/EKG's, fci records)? Report findings @ -No old charts were reviewed Differential Diagnosis (chest pain, altered mental status, abdominal pain women, abdominal pain men, vaginal bleeding, weakness, fever, dyspnea, syncope, headache, dizziness, GI bleed, back pain, seizure, CVA, palpatations, mental health, musculoskeletal)? @ -[Differential Chest Pain: Stable Angina, Unstable Angina, STEMI, NSTEMI Aortic Dissection, Pneumothorax, Musculoskeletal, Esophageal Spasm GERD, Cholecystitis, Pancreatitis, Zoster, this is not meant to be an all-inclusive list. EKG interpreted by me (3pts min.). @ -Yes and demonstrates sinus bradycardia with a rate of 56. IL interval 149. QRS 103. QTc of 434. No acute ST segment elevations. Inverted T wave in lead III X-rays interpreted by me (1pt min.). @ -Yes and demonstrates no acute process CT interpreted by me (1pt min.). @ -None done U/S interpreted by me (1pt. min.). @ -None done What testing was considered but not performed or refused? (CT, X-rays, U/S, labs)? Why? @ -None What meds were considered but not given or refused? Why? @ -None Did you discuss the management of the patient with other professionals (professionals i.e. , PA, [employer] CELL BATTERY ASSEMBLER, lab, RT, psych nurse, vp digital marketing social media and crm, film color tester, teacher, chief creative officer, case hardener)? Give summary @ -No Was smoking cessation discussed for >3mins.? @ -No Was critical care preformed (if so, how long)? @ -No Were there social determinants of health that impacted care today? How? (Homelessness, low income, unemployed, alcoholism, drug addiction, transportation, low edu. Level, literacy, decrease access to med. care, detention, rehab)? @ -No Was there de-escalation of care discussed even if they declined (Discuss DNR or withdrawal of care, Hospice)? DNR status @ -No What co-morbidities impacted this encounter? (DM, HTN, Smoking, COPD, CAD, Cancer, CVA, ARF, Chemo, Hep., AIDS, mental health diagnosis, sleep apnea, morbid obesity)? @ -None Was patient admitted / discharged? Hospital course, mention meds given and route, prescriptions, significant lab abnormalities, going to OR and other pertinent info. @ -Upon arrival patient seen and evaluated in room 27. Thorough history and physical exam was performed. IV access was established. Laboratory studies are conducted. Chest x-ray was performed. Results are discussed with patient. I did recommend overnight observation for trending additional troponins however patient refused. Wants to go home. I recommend that she follow-up outpatient with primary care doctor to have an echo and a stress test performed. Patient was agreeable to this. She is asked to return for any new or worsening symptoms. Patient agreeable and discharged in stable condition Undiagnosed new problem with uncertain prognosis? @ -No Drug Therapy requiring intensive monitoring for toxicity (Heparin, Nitro, Insulin, Cardizem)? @ -No Were any procedures done? @ -No Diagnosis/symptom? @ -Acute atypical chest pain Acute, or Chronic, or Acute on Chronic? @ -Acute Uncomplicated (without systemic symptoms) or Complicated (systemic symptoms)? @ -Complicated Side effects of treatment? @ -No Exacerbation, Progression, or Severe Exacerbation? @ -No Poses a threat to life or bodily function? How? (Chest pain, [place], [place], pneumonia, PE, COPD, DKA, ARF, appy, cholecystitis, CVA, Diverticulitis, Homicidal, Suicidal, threat to staff... and all critical care pts) @ -No Disposition Clinical Impression: Atypical chest pain Disposition: HOME SELF-CARE Condition: Stable Instructions (If sedation given, give patient instructions): Chest Pain (ED) Additional Instructions: Please follow-up with your primary care doctor in regards to your symptoms. I do think that you need a cardiac workup to include a stress test and an echo. Please return to the emergency department should you have any new or worsening symptoms Is patient prescribed a controlled substance at d/c from ED?: No Referrals: Clayton Menon DO [Primary Care Provider] - 1-2 days Time of Disposition: 11:04
[2024-04-10 11:24] VITALS: BP 148/87; PULSE 55; RESP 22; TEMP 98.4
== END 2024-04-10 11:13 | disposition home or self-care (01) ==
LOC: EC 08:46
DX: R07.89 Other chest pain (principal); R00.1 Bradycardia, unspecified; Z88.5 Allergy status to narcotic agent
CPT/HCPCS: 36415; 71046; 80053; 83690; 83735; 84484; 85025; 85379; 85610; 85730; 93005; 99285